=== PATIENT | male | born 1965 | race Caucasian/White ===

== ENCOUNTER → 2017-10-27 | Outpatient (CLI) | payer OTHER | END | disposition home or self-care (01) | LOC: C.LABPBG 09:28 | PROVIDERS: ATTEND Physician Assistant | DX: E03.9 Hypothyroidism, unspecified (principal) ==

== ENCOUNTER → 2017-12-15 | Outpatient (CLI) | payer OTHER ==
[~2017-12-15] MED LIST: OPTIRAY 320 IV PRN
--- NOTE | 2017-12-15 12:20 | DIAGNOSTIC IMAGING REPORT ---
ORBIT CT HISTORY: GRAVES DISEASE TECHNIQUE: Multiaxial CT images of the orbits were performed both before and after the intravenous administration of contrast. Coronal and sagittal reformations are also obtained. COMPARISON STUDY: Orbits CT 06/08/2015. FINDINGS: No significant change in the bilateral proptosis. Prominence of the retrobulbar fat is also unchanged. The superior ophthalmic veins are normal in caliber. There is diffuse thickening of the extraocular muscles. This is less pronounced at the lateral rectus muscles consistent with the typical findings of thyroid associated orbitopathy. Fatty atrophy of the muscles. There is mild increased thickening within the right extra ocular muscles compared to the prior study. No significant change in the thickened left extra-axial muscles. The optic nerves are normal in course and caliber. The lateral glands are within normal limits. No fluid collections identified to suggest an abscess. Medial depression of the lamina papyracea due to mass effect from the thickened medial rectus muscles. The visualized brain parenchyma is unremarkable. The paranasal sinuses and mastoid air cells are clear. 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 This has slightly progressed on the right. Electronically signed by: Keaton Rush M.D. 12/15/2017 12:18 PM Dictated Date/Time: 12/15/2017 12:08 PM
== END | disposition home or self-care (01) ==
LOC: C.CTS 11:06
PROVIDERS: ATTEND Ophthalmology Pediatric Ophthalmology and Strabismus Specialist
DX: E05.00 Thyrotoxicosis with diffuse goiter without thyrotoxic crisis or storm (principal); H57.9 Unspecified disorder of eye and adnexa

== ENCOUNTER → 2017-12-15 | Outpatient (CLI) | payer OTHER | END | disposition home or self-care (01) | LOC: C.LABPBG 12:19 | PROVIDERS: ATTEND Physician Assistant | DX: E03.9 Hypothyroidism, unspecified (principal) ==

== ENCOUNTER → 2018-02-20 | Outpatient (CLI) | payer OTHER | END | disposition home or self-care (01) | LOC: C.LABPBG 15:20 | PROVIDERS: ATTEND Physician Assistant | DX: E03.9 Hypothyroidism, unspecified (principal) ==

== ENCOUNTER → 2018-02-27 | Outpatient (CLI) | payer OTHER ==
--- NOTE | 2018-02-27 16:12 | DIAGNOSTIC IMAGING REPORT ---
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 FINDINGS: The cardiac and mediastinal contours are normal. There is no evidence of focal pulmonary consolidation. There is no evidence of failure. No pleural effusions are visualized.[ IMPRESSION: No active disease in the chest. Electronically signed by: Shaquille Drake M.D. 02/27/2018 4:11 PM Dictated Date/Time: 02/27/2018 4:11 PM
[2018-02-27 16:46] LABS: BASO % 0.1 %; BASO ABS # 0.01 K/uL (0-0.2); EOS % 0.7 %; EOS ABS # 0.05 K/uL (0-0.5); HEMATOCRIT 39.6 % (42-52); IG# 0.01 K/uL (0.00-0.02); LYMPH % 28.5 %; LYMPH ABS # 2.08 K/uL (1.2-3.4); MEAN CELL VOLUME 92.3 fL (80-100); MEAN CORPUSCULAR HEMOGLOBIN 32.6 pg (25-34); MEAN CORPUSCULAR HGB CONC 35.4 g/dl (32-36); MEAN PLATELET VOLUME 10.2 fL (7.4-10.4); MONO % 9.4 %; MONO ABS # 0.69 K/uL (0.11-0.59); NEUT % 61.2 %; NEUT ABS # 4.47 K/uL (1.4-6.5); PLATELET COUNT 234 K/uL (130-400); RED CELL DISTRIBUTION WIDTH CV 12.6 % (11.5-14.5); RED CELL DISTRIBUTION WIDTH SD 42.5 fL (36.4-46.3); WHITE BLOOD COUNT 7.31 K/uL (4.8-10.8)
[2018-02-27 17:22] LABS: BLOOD UREA NITROGEN 11 mg/dl (7-18); CALCIUM 8.3 mg/dl (8.5-10.1); CARBON DIOXIDE 28 mmol/L (21-32); CREATININE 1.04 mg/dl (0.60-1.40); GLUCOSE 94 mg/dl (70-99); POTASSIUM 3.5 mmol/L (3.5-5.1); SODIUM 137 mmol/L (136-145)
[2018-02-28 06:43] LABS: HEMOGLOBIN A1C 5.4 % (4.5-5.6)
== END | disposition home or self-care (01) ==
LOC: C.LAB 15:19
PROVIDERS: ATTEND Physician Assistant
DX: Z01.818 Encounter for other preprocedural examination (principal); H50 Other strabismus

== ENCOUNTER → 2018-06-12 | Outpatient (CLI) | payer OTHER | END | disposition home or self-care (01) | LOC: C.LABPBG 15:26 | PROVIDERS: ATTEND Family Medicine | DX: E03.9 Hypothyroidism, unspecified (principal) ==